=== PATIENT | female | born 1955 | race Caucasian/White ===

== ENCOUNTER 2025-07-30 08:13 | Emergency (ER) | payer MEDICARE, OTHER, SELFPAY ==
[2025-07-30 08:30] VITALS: BP 138/79; PULSE 90; TEMP 36.9; O2SAT 97; BMI 25.7
--- NOTE | 2025-07-30 08:46 | ED_ITS ---
HPI HPI - General Adult General Chief complaint: Skin/Abscess/Foreign Body Stated complaint: ABCESS L LOWER EXTREMITY Time Seen by Provider: 07/30/25 08:33 Source: patient Mode of arrival: walk-in Limitations: no limitations History of Present Illness HPI narrative: The patient is 69-year-old female with history of diabetes coming to the ER after she just moved from [place] almost 3 days ago the patient mentioned that she have a history of having some small pimples in her buttock area that resolved by themselves over the last few days but she notices one of them is big and she has been having pain from that area since almost 5 days, patient have no fever no chills no nausea no vomiting no decreased p.o. intake She denies any other complaint or concerns Related Data Previous Rx's ?Medication ?Instructions ?Recorded amoxicillin 500 mg capsule 500 mg PO Q8H #21 caps 07/10 01/02 doxycycline hyclate 100 mg capsule 100 mg PO BID 7 day s #14 caps 07/30/25 Allergies Allergy/AdvReac Type Severity Reaction Status Date / Time No Known Drug Allergies Allergy Verified 07/30/25 08:29 Opioid HPI Opioid Management Most Recent Opioid Data: Last Pain Scale 8 Today, 08:30 Review of Systems ROS Status of ROS 10 or more systems reviewed and unremark able except as noted in h istory and below PFSH PFSH Social History Little interest or pleasure in doing things: not at all Feeling down, depressed, or hopeless: not at all Exam Narrative Exam Narrative: Nurses notes and vital signs reviewed and patient is not hypoxic. General: Well-appearing and in no apparent distress. Skin: Warm, dry, no pallor noted. No rash. Head: Normocephalic, atraumatic. Cardiovascular: Regular Rate and Rhythm without murmur, gallop or rub. Respiratory: No accessory muscle use or respiratory distress. GI: Abdomen is soft, non-distended. Normal bowel sounds. No masses appreciated. No tenderness to palpation. No rebound, guarding, or rigidity noted. The patient examination of the buttock area showed that she have a an area of almost 7 to 8 cm of redness surrounding an area of 2 cm oval in shape that is in the middle mostly an area of abscess and there is fluctuation in the middle, there is a very small almost 1 mm area of drainage in the center Neurological: A&O x4. No cranial nerve dysfunction observed. No truncal ataxia. Moves all extremities. Sensation intact. Psychiatric: Cooperative and interactive. Normal mood and affect. Constitutional Vital Signs, click to edit/add: Last Vital Signs Temp 98.5 F 07/30/25 08:30 Pulse 90 07/30/25 08:30 Resp 14 07/30/25 08:30 BP 138/79 07/30/25 08:30 Pulse Ox 97 07/30/25 08:30 O2 Del Method Room Air 07/30/25 08:30 Course Vital Signs Vital signs: Vital Signs Temperature 98.5 F 07/30/25 08:30 Pulse Rate 90 07/30/25 08:30 Respiratory Rate 14 07/30/25 08:30 Blood Pressure 138/79 07/30/25 08:30 Pulse Oximetry 97 07/30/25 08:30 Oxygen Delivery Method Room Air 07/30/25 08:30 Temperature 98.5 F 07/30/25 08:30 Pulse Rate 90 07/30/25 08:30 Respiratory Rate 14 07/30/25 08:30 Blood Pressure 138/79 07/30/25 08:30 Pulse Oximetry 97 07/30/25 08:30 Oxygen Delivery Method Room Air 07/30/25 08:30 Medical Decision Making MDM Narrative Medical decision making narrative: After cleaning the area on the left buttock posteriorly, and the area is not extending to around the rectum it is almost 12 cm away from the rectum After cleaning the area with Betadine After that infiltrating the area with 1% lidocaine almost 10 cc The patient had a 11 size scalpel used to have a stab wound after which I was able to use a hemostat to dissolve the loculations. The patient then had almost 10 cc of pus drained , we obtained a wound culture. It was noted also that the patient have another area of drainage almost 4 cm away from the original wound Almost 10 cc of packing placed after adequate drainage was done Clean dressing applied and the patient was started on Unasyn in the ER as well as discharged home with doxycycline and amoxicillin Patient is to come back to the ER within 2 days which is on the to be reevaluated for her wound during that time the patient to continue the antibiotic and in case of fever or increasing pain she patient to come back to the ER The packing will be removed in 2 days after the patient come to be evaluated Lab Data Labs: Lab Results 07/30/25 Range/Units 08:50 WBC 8.3 (4.0-11.0) 10^3/uL RBC 3.47 L (4.20-5.40) 10^6/uL Hgb 10.9 L (12.0-16.0) g/dL Hct 33.1 L (36.0-48.0) % MCV 95.4 (81.0-99.0) fL MCH 31.4 (26.7-34.0) pg MCHC 32.9 (29.9-35.2) g/dL RDW 13.0 (11.0-15.0) % Plt Count 319 (150-450) 10^3/uL MPV 9.6 (9.5-13.5) fL Neut % (Auto) 81.9 H (43.0-75.0) % Lymph % (Auto) 5.5 L (20.5-60.0) % [place] % (Auto) 9.3 (1.7-12.0) % Eos % (Auto) 2.3 (0.9-7.0) % Baso % (Auto) 0.6 (0.2-2.0) % Neut # (Auto) 6.8 H (1.4-6.5) 10^3/uL Lymph # (Auto) 0.5 L (1.2-3.8) 10^3/uL [place] # (Auto) 0.8 (0.3-0.8) 10^3/uL Eos # (Auto) 0.2 (0.0-0.7) 10^3/uL Baso # (Auto) 0.1 (0.0-0.1) 10^3/uL Abs Immat Gran (auto) 0.03 (0.00-0.03) 10^3/uL Imm/Tot Granulo (auto) 0.4 (0.0-0.5) % Sodium 145 (136-145) mmol/L Potassium 3.3 L (3.5-5.1) mmol/L Chloride 107 (98-107) mmol/L Carbon Dioxide 27.9 (21.0-32.0) mmol/L Anion Gap 13.4 BUN 17.0 (7.0-18.0) mg/dL Creatinine 1.10 H (0.55-1.02) mg/dL Est GFR ( Amer) 59 L (>=60 mL/min/1.73m^2) Est GFR (Non-Af Amer) 49 L (>=60 mL/min/1.73m^2) BUN/Creatinine Ratio 15.5 Glucose 132 H (74-106) mg/dL Calcium 7.2 L (8.5-10.1) mg/dL Total Bilirubin 0.4 (0.2-1.0) mg/dL AST 27 (15-37) U/L ALT 24 (14-59) U/L Alkaline Phosphatase 176 H (46-116) U/L Total Protein 7.0 (6.4-8.2) g/dL Albumin 2.8 L (3.4-5.0) g/dL Globulin 4.2 g/dL Albumin/Globulin Ratio 0.7 Discharge Plan Discharge Chief Complaint: Skin/Abscess/Foreign Body Clinical Impression: Cellulitis and abscess of buttock, Encounter for drainage of abscess, Hypokalemia Patient Disposition: Home, Self-Care Time of Disposition Decision: 10:39 Condition: Good Prescriptions / Home Meds: New amoxicillin 500 mg capsule 500 mg PO Q8H Qty: 21 0RF doxycycline hyclate 100 mg capsule 100 mg PO BID 7 Days Qty: 14 0RF Print Language: Slovak Instructions: Hypokalemia (ED), Abscess (ED), Abscess Incision and Drainage (DC) Additional Instructions: Please come back to the ER on August 01 to be evaluated again for the wound and to remove the packing Referrals: Physician,Non-Staff, MD [Primary Care Provider] - 1 week Discharge Date/Time: 07/30/25 10:52
[2025-07-30] MEDS: KETOROLAC TROMETHAMINE 30 MG/ML VIAL 15 MG IVP (08:56)
[2025-07-30 09:00] LABS: Hematocrit 33.1 % (36.0-48.0); Hemoglobin 10.9 g/dL (12.0-16.0); Immature Granulocytes Abs Auto 0.03 10^3/uL (0.00-0.03); Immature Granulocytes Pct Auto 0.4 % (0.0-0.5); Lymphocytes Absolute Auto 0.5 10^3/uL (1.2-3.8); Mean Corpuscular HGB Conc 32.9 g/dL (29.9-35.2); Mean Corpuscular Hemoglobin 31.4 pg (26.7-34.0); Mean Corpuscular Volume 95.4 fL (81.0-99.0); Platelet Count 319 10^3/uL (150-450); Red Blood Count 3.47 10^6/uL (4.20-5.40); White Blood Count 8.3 10^3/uL (4.0-11.0)
[2025-07-30] MEDS: LIDOCAINE HCL 1% 100 MG/10 ML MDV INJ (09:04)
[2025-07-30 09:13] LABS: Alanine Aminotransferase 24 U/L (14-59); Albumin Globulin Ratio 0.7; Albumin Level 2.8 g/dL (3.4-5.0); Alkaline Phosphatase 176 U/L (46-116); Anion Gap 13.4; Aspartate Amino Transferase 27 U/L (15-37); Blood Urea Nitrogen 17.0 mg/dL (7.0-18.0); Calcium 7.2 mg/dL (8.5-10.1); Carbon Dioxide 27.9 mmol/L (21.0-32.0); Chloride 107 mmol/L (98-107); Estimated GFR (African America 59 (>=60 mL/min/1.73m^2); Estimated GFR (Non-African Ame 49 (>=60 mL/min/1.73m^2); Globulin 4.2 g/dL; Glucose 132 mg/dL (74-106); Potassium 3.3 mmol/L (3.5-5.1); Sodium 145 mmol/L (136-145); Total Protein 7.0 g/dL (6.4-8.2)
[2025-07-30] MEDS: AMPICILLIN SODIUM/SULBACTAM NA 3 GM in 0.9 % SODIUM CHLORIDE 100 ML IV (09:57)
[2025-07-30] MEDS: DOXYCYCLINE MONOHYDRATE 100 MG CAPSULE PO (09:57)
== END 2025-07-30 10:52 | disposition home or self-care (01) ==
PROVIDERS: Emergency Provider Emergency Medicine
DX: L02.31 Cutaneous abscess of buttock (principal); L03.317 Cellulitis of buttock; E87.6 Hypokalemia; E11.9 Type 2 diabetes mellitus without complications
CPT/HCPCS: 10060; 36415; 80053; 85025; 87070; 87075; 87186; 96365; 96375; 99284; J0295; J1885

== ENCOUNTER 2025-08-01 06:26 | Emergency (ER) | payer MEDICARE, OTHER, SELFPAY ==
[2025-08-01 06:31] VITALS: BP 165/95; PULSE 98; TEMP 36.7; O2SAT 95; BMI 25.7
--- NOTE | 2025-08-01 06:49 | ED_ITS ---
<Statement entered by Tarsha Chavez MD - 08/01/25 22:56> This documentation has been reviewed and approved. HPI - Skin/Abscess/Foreign Bdy General Chief complaint: Skin/Abscess/Foreign Body Stated complaint: POST SURGICAL PAIN Time Seen by Provider: 08/01/25 06:35 Source: patient Mode of arrival: walk-in Limitations: no limitations History of Present Illness HPI narrative: This 69-year-old female who is here recently had had a left buttock abscess incised and drained with packing placed presents for packing removal/replacement. The patient states she recently drove to [place] from [place] where she had been living and during that time had severe pain in her left buttock area. She did not have any fever. She was seen and evaluated for an abscess which was incised and drained and cultured. She was discharged home with antibiotics and the packing was left in place. She presents for evaluation of this wound for wound recheck and packing removal. She is having very minimal drainage from this area. She denies any pain in this area and she has not having any fever. The packing was gently removed and the area was irrigated. There is remaining approximately 3 cm x 1 cm deep area of induration in this area with some small local open areas that the patient had described as pimples in this area when she first presented for evaluation. There was no drainage, foul smell or anything that appeared to be tracking at this time. It was reirrigated and packing was replaced without incident. I did check her culture and sensitivities from her first visit but they were not available yet. Related Data Previous Rx's ?Medication ?Instructions ?Recorded amoxicillin 500 mg capsule 500 mg PO Q8H #21 caps 07/10 01/02 doxycycline hyclate 100 mg capsule 100 mg PO BID 7 day s #14 caps 07/30/25 Allergies Allergy/AdvReac Type Severity Reaction Status Date / Time No Known Drug Allergies Allergy Verified 08/01/25 06:33 Review of Systems ROS Status of ROS 10 or more systems reviewed and unremark able except as noted in history and below PFSH PFSH Social History Little interest or pleasure in doing things: not at all Feeling down, depressed, or hopeless: not at all Exam Narrative Exam Narrative: Vital signs and Nursing Notes reviewed: Is afebrile with normal pulse, blood pressure is elevated at 165/95, she is not hypoxic with pulse ox of 95% on room air General: Awake, alert, oriented, no acute distress, lying comfortably on the stretcher HEENT: Normocephalic atraumatic, mucous membranes are moist and pink, eyes are clear, normal conjunctiva, vision is grossly intact Chest: Lungs are clear to auscultation with good air entry, there is no wheezing rhonchi or rales appreciated no accessory muscle use, patient is speaking in complete sentences-no chest wall tenderness to palpation CVS: Regular rate and rhythm S1-S2, no murmurs rubs or gallops, pulses are brisk and equal bilaterally ABD: Soft, nondistended, nontender, no rebound guarding or rigidity, bowel sounds are normal, no pulsatile masses appreciated/rectal area; there is an approximately 1 x 1 cm open area with packing in place that was gently removed. There is an approximately 3 cm circumferential area around this open area with erythema and induration. No drainage or notable tracking was appreciated. No foul smell is noted. There was no extension into her perineum. Extremities: Moving all extremities, no lower extremity tenderness or swelling noted, negative Homans' sign, pulses are brisk and equal bilaterally Skin: Normal in appearance without rash,pallor, petechiae or purpura Neuro: No focal deficits Constitutional Vital Signs, click to edit/add: Last Vital Signs Temp 98.0 F 08/01/25 06:31 Pulse 98 H 08/01/25 06:31 Resp 18 08/01/25 06:31 BP 165/95 H 08/01/25 06:31 Pulse Ox 95 08/01/25 06:31 O2 Del Method Room Air 08/01/25 06:31 Course Vital Signs Vital signs: Vital Signs Temperature 98.0 F 08/01/25 06:31 Pulse Rate 98 H 08/01/25 06:31 Respiratory Rate 18 08/01/25 06:31 Blood Pressure 165/95 H 08/01/25 06:31 Pulse Oximetry 95 08/01/25 06:31 Oxygen Delivery Method Room Air 08/01/25 06:31 Temperature 98.0 F 08/01/25 06:31 Pulse Rate 98 H 08/01/25 06:31 Respiratory Rate 18 08/01/25 06:31 Blood Pressure 165/95 H 08/01/25 06:31 Pulse Oximetry 95 08/01/25 06:31 Oxygen Delivery Method Room Air 08/01/25 06:31 Discharge Plan Discharge Chief Complaint: Skin/Abscess/Foreign Body Clinical Impression: Encounter for removal of abscess packing Patient Disposition: Home, Self-Care Time of Disposition Decision: 06:46 Condition: Good Prescriptions / Home Meds: No Action amoxicillin 500 mg capsule 500 mg PO Q8H Qty: 21 0RF doxycycline hyclate 100 mg capsule 100 mg PO BID 7 Days Qty: 14 0RF Print Language: Slovenian Instructions: Bandage Change (ED) Additional Instructions: Continue current antibiotics. Use warm compresses to help the abscess continue to drain. Return to the emergency department for repeat packing as needed in the next several days. Referrals: Physician,Non-Staff, MD [Primary Care Provider] - 1 week Discharge Date/Time: 08/01/25 07:21 Procedures ED Procedure Instructions Procedures Procedures: Packing removal/replacement; the packing in the patient's right buttock area was gently removed and the abscess cavity was irrigated with sterile saline. Packing was replaced and a sterile dry dressing was placed topically by the nursing staff. Patient tolerated procedure well
== END 2025-08-01 07:21 | disposition home or self-care (01) ==
PROVIDERS: Emergency Provider Emergency Medicine
DX: Z48.00 Encounter for change or removal of nonsurgical wound dressing (principal)
CPT/HCPCS: 99282

== ENCOUNTER 2025-08-14 06:43 | Emergency (ER) | payer MEDICARE, OTHER, SELFPAY ==
[2025-08-14 06:47] VITALS: BP 131/68; PULSE 97; TEMP 37.2; O2SAT 95; BMI 25.7
--- NOTE | 2025-08-14 08:29 | ED.GENADUL1 ---
HPI HPI - General Adult General Chief complaint: Skin/Abscess/Foreign Body Stated complaint: ABCESS LOWER EXTREMITY Time Seen by Provider: 08/14/25 07:04 Source: patient Mode of arrival: walk-in Limitations: no limitations History of Present Illness HPI narrative: Patient is a 69-year-old female presenting to the emergency department for concerns of an abscess on her right buttock. Patient states she has had recurrent abscesses in the same area for a long time. She states it has recurred approximately 8 times. She states that last time she had an incision and drainage was a couple weeks ago. She states she did finish her course of antibiotics a week ago. She states that over the last few days the abscess has returned. Other than localized pain and swelling, she has no other systemic symptoms. She denies nausea or vomiting. No chest pain or shortness of breath. No fevers or chills. No issues with defecation or urination. Related Data Previous Rx's ?Medication ?Instructions ?Recorded sulfamethoxazole 800 1 tab PO BID 10 days #20 tabs 08/14/25 mg-trimethoprim 160 mg tablet (Bactrim DS) Allergies Allergy/AdvReac Type Severity Reaction Status Date / Time No Known Drug Allergies Allergy Verified 08/14/25 06:51 Opioid HPI Opioid Management Most Recent Opioid Data: Last Pain Scale 1 08/01/25, 06:31 Review of Systems ROS Status of ROS 10 or more systems reviewed and unremarkable except as noted in history and below PFSH PFSH Social History Little interest or pleasure in doing things: not at all Feeling down, depressed, or hopeless: not at all Exam Narrative Exam Narrative: CONSTITUTIONAL: Nontoxic, answering questions and following commands appropriately SKIN: Was warm and dry. EYES: Sclerae white. EARS, NOSE, THROAT: Moist oral mucosa. RESPIRATORY: Nonlabored respirations. CARDIOVASCULAR: Normal rate and regular rhythm. There is no S3, S4, murmur, rub. GASTROINTESTINAL: Examination of the right buttock area showed an area of erythema approximately 8 cm with an underlying area of fluctuance at the center of the lesion. Rectal examination was normal without evidence of perirectal abscess or hemorrhoids. Abdomen is soft, nontender, nondistended. MUSCULOSKELETAL: No peripheral edema. NEUROLOGIC: Patient is awake and alert. Facies were symmetrical. Constitutional Vital Signs, click to edit/add: Last Vital Signs Temp 99.0 F 08/14/25 06:47 Pulse 97 H 08/14/25 06:47 Resp 16 08/14/25 06:47 BP 131/68 08/14/25 06:47 Pulse Ox 95 08/14/25 06:47 O2 Del Method Room Air 08/14/25 06:47 Course Vital Signs Vital signs: Vital Signs Temperature 99.0 F 08/14/25 06:47 Pulse Rate 97 H 08/14/25 06:47 Respiratory Rate 16 08/14/25 06:47 Blood Pressure 131/68 08/14/25 06:47 Pulse Oximetry 95 08/14/25 06:47 Oxygen Delivery Method Room Air 08/14/25 06:47 Temperature 99.0 F 08/14/25 06:47 Pulse Rate 97 H 08/14/25 06:47 Respiratory Rate 16 08/14/25 06:47 Blood Pressure 131/68 08/14/25 06:47 Pulse Oximetry 95 08/14/25 06:47 Oxygen Delivery Method Room Air 08/14/25 06:47 Medical Decision Making [facility] Narrative Medical decision making narrative: Patient is a 69-year-old female, history significant for recurrent right gluteal soft tissue abscesses, presenting to the emergency department for recurrent infection in that area. On review of external documentation, patient was seen in the emergency department on 07/30/2025 for the same issue. She had I&D and wound packing at that time. Wound cultures were obtained that grew MRSA. Today, the patient's vital signs are within normal limits. She is afebrile and hemodynamically stable. Examination as noted above. Differential diagnosis includes recurrent soft tissue gluteal abscess with associated cellulitis. The infection does not involve the rectal/perirectal area, and is not consistent with perirectal/perianal abscess. The wound was I&D (see procedure note for full dictation) with return of approximately 5 cc of purulent material. Patient tolerated the procedure well and reported immediate relief of her discomfort. I do believe the patient is stable for discharge. Patient's presentation is most likely consistent with recurrent soft tissue gluteal abscess. They were instructed to follow up with general surgery clinic given its continued recurrence. Return precautions were given including any new or worsening symptoms, including fevers. They were given a prescription for Bactrim DS twice daily x 10 days. Patient understands and agrees to the plan. FINAL IMPRESSION: #Acute right gluteal soft tissue abscess and cellulitis requiring I&D DISPOSITION: Discharged home CONDITION: Fair Discharge Plan Discharge Chief Complaint: Skin/Abscess/Foreign Body Clinical Impression: Cellulitis and abscess of buttock, Encounter for drainage of abscess Patient Disposition: Home, Self-Care Time of Disposition Decision: 07:46 Condition: Good Mode of Transportation: Private Vehicle Prescriptions / Home Meds: New sulfamethoxazole-trimethoprim [Bactrim DS] 800-160 mg tablet 1 tab PO BID 10 Days Qty: 20 0RF Print Language: Portuguese Instructions: Abscess (ED) Referrals: Rick Hobbs MD [Physician, General Surgery] - 1 week Tarsha Lind DO [Primary Care Provider] - 1 week Discharge Date/Time: 08/14/25 08:14 Procedures ED ID Incision & Drainage I&D Type: abcess Site: other (right gluteal abscess) Side (if applicable): right Technique: incised with #11 blade Amount of fluid (mL): 5 Irrigation: No Packing used: none Complications: pain (mild) and bleeding (mild, with achieved hemostasis with direct pressure)
== END 2025-08-14 08:14 | disposition home or self-care (01) ==
PROVIDERS: Emergency Provider Student in an Organized Health Care Education/Training Program; PCP Student in an Organized Health Care Education/Training Program
DX: L02.31 Cutaneous abscess of buttock (principal); L03.317 Cellulitis of buttock; Z86.14 Personal history of Methicillin resistant Staphylococcus aureus infection
CPT/HCPCS: 10060; 99283